=== PATIENT | female | born 1970 | race Caucasian/White ===

== ENCOUNTER 2016-11-19 00:58 | Emergency (ER) | payer OTHER ==
[~2016-11-19] VITALS: Ht 167.6 cm; Wt 74.9 kg
[~2016-11-19 00:58] MED LIST: Advair 500/50 Diskus IH; Levaquin PO; Percocet 5/325,Endoc PO; Protonix PO; Proventil,Ventolin H IH; Tylenol PR
[2016-11-19 01:37] LABS: HEMATOCRIT 40.3 % (36.0-46.0); MCH 31.3 PG (29.0-34.0); MCV 89.6 FL (83-99); MEAN PLAT.VOLUME 9.5 uM^3 (9.5-12.4); PLATELET COUNT 341 K/uL (156-360); RBC DIS.WIDTH-SD 39.5 % (39-53); WHITE BLOOD COUNT 7.8 K/uL (4.1-10.2)
[2016-11-19 01:47] LABS: CHLORIDE 112 mEq/L (99-109); SODIUM 139 mEq/L (136-147)
[2016-11-19 01:49] LABS: GLUCOSE 81 mg/dL (70-99)
[2016-11-19 01:50] LABS: ANION GAP 5 MEQ/L (2-14)
[2016-11-19 01:52] LABS: GFR ESTIMATE (CALCULATED) > 59 mL/min/
[2016-11-19 01:53] LABS: UREA NITROGEN (BUN) 19 mg/dL (9-23)
[2016-11-19 02:00] LABS: TROP-I INTERPRETATION NEGATIVE; TROPONIN-I < 0.01 ng/mL (0.0-0.30)
[2016-11-19 03:53] LABS: D-DIMER ELISA < 150.00 ng/mLDDU (<230)
[2016-11-19 05:46] LABS: TOTAL BILIRUBIN 0.5 mg/dL (0.0-1.0)
[2016-11-19 05:47] LABS: ALKALINE PHOSPHATASE 59 IU/L (3-129)
[2016-11-19 05:49] LABS: DIRECT BILIRUBIN 0.2 mg/dL (0.0-0.3)
[2016-11-19 05:50] LABS: LIPASE 32 U/L (1.0-51.0)
[2016-11-19] MEDS ORDERED: FLEXERIL5 MG PO (07:57)
[2016-11-19] MEDS ORDERED: DILAUDID2 MG PO (07:57)
[2016-11-19] MEDS ORDERED: DURAGESIC50 MCG TD (08:20)
[2016-11-19 08:30] VITALS: BP 117/67
== END 2016-11-19 08:22 | disposition home or self-care (01) ==
LOC: EME 00:58
DX: M25.511 Pain in right shoulder (principal); G89.29 Other chronic pain; R93.2 Abnormal findings on diagnostic imaging of liver and biliary tract; J45.909 Unspecified asthma, uncomplicated; Z87.891 Personal history of nicotine dependence
CPT/HCPCS: 71020; 71250; 80048; 80076; 83690; 84484; 85027; 85379; 93005; 99281; 99284; J1170; J2270; J7030

== ENCOUNTER 2016-12-08 14:01 | Inpatient (IN) | payer OTHER ==
[~2016-12-08] VITALS: Ht 167.6 cm; Wt 76.2 kg
[~2016-12-08 14:01] MED LIST changes: +DILAUDID2 MG PO; +DURAGESIC50 MCG TD; +FLEXERIL5 MG PO
[2016-12-08 15:05] LABS: HEMATOCRIT 49.7 % (36.0-46.0); MCH 30.6 PG (29.0-34.0); MEAN PLAT.VOLUME 9.7 uM^3 (9.5-12.4); PLATELET COUNT 514 K/uL (156-360); RBC DIS.WIDTH-CV 11.9 % (11.8-14.6); RBC DIS.WIDTH-SD 39.6 % (39-53); RED BLOOD COUNT 5.52 M/uL (3.80-5.20); WHITE BLOOD COUNT 14.3 K/uL (4.1-10.2)
[2016-12-08 15:10] LABS: CHLORIDE 101 mEq/L (99-109); POTASSIUM 4.1 mEq/L (3.7-5.4); SODIUM 137 mEq/L (136-147)
[2016-12-08 15:12] LABS: GLUCOSE 81 mg/dL (70-99)
[2016-12-08 15:14] LABS: ANION GAP 21 MEQ/L (2-14); TOTAL BILIRUBIN 1.1 mg/dL (0.0-1.0)
[2016-12-08 15:16] LABS: ALKALINE PHOSPHATASE 77 IU/L (3-129); GFR ESTIMATE (CALCULATED) > 59 mL/min/
[2016-12-08 15:17] LABS: UREA NITROGEN (BUN) 21 mg/dL (9-23)
[2016-12-08 15:19] LABS: LIPASE 15 U/L (1.0-51.0)
[2016-12-08 15:28] LABS: QUANTITATIVE HCG < 4.0 MIU/ML
[2016-12-08 16:01] LABS: TROP-I INTERPRETATION NEGATIVE; TROPONIN-I < 0.01 ng/mL (0.0-0.30)
[2016-12-08] MEDS ORDERED: DURAGESIC25 MCG TD (16:23)
[2016-12-08] MEDS ORDERED: DILAUDID4 MG PO (16:23)
[2016-12-08 16:24] LABS: MAGNESIUM 1.9 mg/dL (1.3-2.7)
[2016-12-08] MEDS ORDERED: PROAIR HFA8.5 GM IH (16:26)
[2016-12-08] MEDS ORDERED: LYRICA25 MG PO (16:26)
[2016-12-08] MEDS ORDERED: SYMBICORT60 INHALA1 IH (16:27)
[2016-12-08 18:43] LABS: ADD MIUA? YES; BILIRUBIN NEGATIVE; BLOOD MODERATE; COLOR YELLOW ((YELLOW)); GLUCOSE (STRIP) NEGATIVE; KETONES 80; LEUKOCYTES NEGATIVE; NITRITE NEGATIVE; PROTEIN (STRIP) NEGATIVE; SPECIFIC GRAVITY 1.014 (1.000-1.030); UROBILINOGEN 0.2 MG/DL (0.2-1.0)
[2016-12-08 18:45] LABS: BACTERIA NONE SEEN /HPF; EPITHELIAL CELLS RARE /HPF; MUCUS TRACE /LPF; RED BLOOD CELLS 0-5 /HPF (0-5); UCUL ADDED? NO; WHITE BLOOD CELLS 0-5 /HPF (0-5)
[2016-12-08 19:00] LABS: EOSINOPHIL (%) 0.1 % (0-5); HEMATOCRIT 43.9 % (36.0-46.0); IMMATURE GRANULOCYTE (%) 0.6 % (0.0-0.7); IMMATURE GRANULOCYTE COUNT 0.1 K/uL; INSTRUMENT ABS NEUTROPHIL CT 13.4 K/uL; LYMPHOCYTE COUNT 0.9 K/uL (1.0-2.8); MCH 30.8 PG (29.0-34.0); MCHC 33.7 G/DL (30.0-36.0); MCV 91.5 FL (83-99); MEAN PLAT.VOLUME 9.5 uM^3 (9.5-12.4); MONOCYTE (%) 7.6 % (3-12); MONOCYTE COUNT 1.2 K/uL (0-0.8); NEUTROPHIL (%) 85.6 % (45-76); NEUTROPHIL COUNT 13.4 K/uL (1.8-6.4); PLATELET COUNT 383 K/uL (156-360); RBC DIS.WIDTH-CV 11.9 % (11.8-14.6); RBC DIS.WIDTH-SD 40.3 % (39-53); WHITE BLOOD COUNT 15.6 K/uL (4.1-10.2)
[2016-12-08 19:13] LABS: TROP-I INTERPRETATION NEGATIVE; TROPONIN-I < 0.01 ng/mL (0.0-0.30)
[2016-12-08 20:11] LABS: AMPHETAMINE NEGATIVE (500 ng/mL); BARBITURATES NEGATIVE (200 ng/mL); BENZODIAZEPINES NEGATIVE (150 ng/mL); COCAINE NEGATIVE (150 ng/mL); INTERNAL CONTROLS VALID? YES; METHADONE NEGATIVE (200 ng/mL); METHAMPHETAMINE NEGATIVE (500 ng/mL); OPIATES (MORPHINE) NEGATIVE (100 ng/mL); OXYCODONE NEGATIVE (100 ng/mL); PHENCYCLIDINE NEGATIVE (25 ng/mL); PROPOXYPHENE NEGATIVE (300 ng/mL); THC CANNABINOIDS NEGATIVE (50 ng/mL); TRICYCLIC ANTIDEPRESSANTS NEGATIVE (300 ng/mL)
[2016-12-08 23:35] VITALS: BP 104/62
[2016-12-09] VITALS (7 sets, daily range): BP systolic 91–118; BP diastolic 53–74
[2016-12-09 02:41] LABS: TROP-I INTERPRETATION NEGATIVE; TROPONIN-I 0.01 ng/mL (0.0-0.30)
[2016-12-09 09:16] LABS: HEMATOCRIT 36.7 % (36.0-46.0); MCH 32.2 PG (29.0-34.0); MCHC 34.9 G/DL (30.0-36.0); MCV 92.4 FL (83-99); PLATELET COUNT 315 K/uL (156-360); RBC DIS.WIDTH-CV 12.4 % (11.8-14.6); RBC DIS.WIDTH-SD 42.3 % (39-53); RED BLOOD COUNT 3.97 M/uL (3.80-5.20); WHITE BLOOD COUNT 7.6 K/uL (4.1-10.2)
[2016-12-09 09:43] LABS: TROP-I INTERPRETATION NEGATIVE; TROPONIN-I 0.02 ng/mL (0.0-0.30)
[2016-12-09 09:45] LABS: ALKALINE PHOSPHATASE 46 IU/L (3-129); ANION GAP 8 MEQ/L (2-14); CHLORIDE 110 MEQ/L (99-109); GFR ESTIMATE (CALCULATED) > 59 mL/min/; GLUCOSE 100 mg/dL (70-99); POTASSIUM 4.1 MEQ/L (3.7-5.4); SAMPLE HEMOLYSIS CHECK 0; SAMPLE ICTERIC CHECK 0; SAMPLE LIPEMIA CHECK 0; SODIUM 139 MEQ/L (136-147); UREA NITROGEN (BUN) 11 mg/dL (9-23)
[2016-12-10 04:24] VITALS: BP 119/68
[2016-12-10 05:31] LABS: EOSINOPHIL (%) 4.5 % (0-5); EOSINOPHIL COUNT 0.3 K/uL (0-0.3); HEMATOCRIT 36.3 % (36.0-46.0); IMMATURE GRANULOCYTE (%) 0.3 % (0.0-0.7); INSTRUMENT ABS NEUTROPHIL CT 3.3 K/uL; LYMPHOCYTE COUNT 1.3 K/uL (1.0-2.8); MCH 31.7 PG (29.0-34.0); MCHC 33.9 G/DL (30.0-36.0); MCV 93.6 FL (83-99); MONOCYTE (%) 14.3 % (3-12); MONOCYTE COUNT 0.8 K/uL (0-0.8); NEUTROPHIL (%) 57.3 % (45-76); NEUTROPHIL COUNT 3.3 K/uL (1.8-6.4); PLATELET COUNT 275 K/uL (156-360); RBC DIS.WIDTH-CV 12.1 % (11.8-14.6); RED BLOOD COUNT 3.88 M/uL (3.80-5.20); WHITE BLOOD COUNT 5.8 K/uL (4.1-10.2)
[2016-12-10 06:05] LABS: ALKALINE PHOSPHATASE 45 IU/L (3-129); ANION GAP 8 MEQ/L (2-14); CHLORIDE 108 MEQ/L (99-109); GFR ESTIMATE (CALCULATED) > 59 mL/min/; MAGNESIUM 1.6 mg/dl (1.3-2.7); SAMPLE HEMOLYSIS CHECK 0; SAMPLE ICTERIC CHECK 0; SAMPLE LIPEMIA CHECK 0; SODIUM 139 MEQ/L (136-147); UREA NITROGEN (BUN) 5 mg/dL (9-23)
[2016-12-10 06:15] LABS: GLUCOSE 206 mg/dL (70-99); TOTAL BILIRUBIN 0.7 MG/DL (0.0-1.0)
[2016-12-10 07:25] VITALS: BP 104/66
[2016-12-10 12:16] VITALS: BP 114/67
[2016-12-10 16:07] VITALS: BP 129/65
[2016-12-10 20:00] VITALS: BP 117/71
[2016-12-11 00:26] VITALS: BP 107/71
[2016-12-11 04:00] VITALS: BP 100/60
[2016-12-11 06:39] LABS: ANION GAP 8 MEQ/L (2-14); CHLORIDE 106 MEQ/L (99-109); GFR ESTIMATE (CALCULATED) > 59 mL/min/; MAGNESIUM 1.6 mg/dl (1.3-2.7); SAMPLE HEMOLYSIS CHECK 0; SAMPLE ICTERIC CHECK 0; SAMPLE LIPEMIA CHECK 0; SODIUM 139 MEQ/L (136-147); UREA NITROGEN (BUN) 5 mg/dL (9-23)
[2016-12-11 06:45] LABS: GLUCOSE 98 mg/dL (70-99)
[2016-12-11 08:31] VITALS: BP 115/63
[2016-12-11 12:04] VITALS: BP 108/70
[2016-12-11] MEDS ORDERED: DICYCLOMINE HCL10 MG PO (13:24)
[2016-12-11] MEDS ORDERED: [UNRECOGNIZED DRUG - OTHER] TP (15:30)
[2016-12-11 16:00] VITALS: BP 112/74
[2016-12-11 19:45] VITALS: BP 115/71
[2016-12-12 00:05] VITALS: BP 105/66
[2016-12-12 03:30] VITALS: BP 107/68
[2016-12-12 07:45] VITALS: BP 103/65
[2016-12-12 12:31] VITALS: BP 111/70
[2016-12-12] MEDS ORDERED: REGLAN5 MG PO (13:52)
[2016-12-12] MEDS ORDERED: ZOFRAN4 MG PO (14:31)
== END 2016-12-12 15:40 | disposition home or self-care (01) | DRG 392 ==
LOC: EME 14:01 → EDOF 21:46 → ENRESERV 21:51 → 5WEST 23:25 → ENRESERV 12-09 09:53 → CANRESERV 12-09 09:53 → 5WEST 12-12 15:40
PROVIDERS: Emergency Medicine; Internal Medicine
PROC: 0DB68ZX Excision of Stomach, Via Natural or Artificial Opening Endoscopic, Diagnostic (ICD-10-PCS; principal; 2016-12-11)
PROC: 0DB58ZX Excision of Esophagus, Via Natural or Artificial Opening Endoscopic, Diagnostic (ICD-10-PCS; principal; 2016-12-11)
DX: R11.2 Nausea with vomiting, unspecified (principal); K31.84 Gastroparesis; G43.D0 Abdominal migraine, not intractable; E86.0 Dehydration; K22.10 Ulcer of esophagus without bleeding; K29.60 Other gastritis without bleeding; K25.9 Gastric ulcer, unspecified as acute or chronic, without hemorrhage or perforation; D72.829 Elevated white blood cell count, unspecified; R00.8 Other abnormalities of heart beat; R07.89 Other chest pain; R41.82 Altered mental status, unspecified; R55 Syncope and collapse; F12.90 Cannabis use, unspecified, uncomplicated; G89.4 Chronic pain syndrome; M47.812 Spondylosis without myelopathy or radiculopathy, cervical region; I49.3 Ventricular premature depolarization; G43.909 Migraine, unspecified, not intractable, without status migrainosus; D18.03 Hemangioma of intra-abdominal structures; D25.9 Leiomyoma of uterus, unspecified; N83.202 Unspecified ovarian cyst, left side; N28.1 Cyst of kidney, acquired; J45.909 Unspecified asthma, uncomplicated; K59.00 Constipation, unspecified; Z80.1 Family history of malignant neoplasm of trachea, bronchus and lung; Z87.891 Personal history of nicotine dependence
CPT/HCPCS: 71010; 74176; 76770; 80048; 80053; 81003; 83690; 83735; 84100; 84443; 84484; 84702; 85025; 85027; 87502; 88305; 88342 TC; 90686; 93005; 94640; 94640 76; 94644; 99202; 99281; 99285; C9113; G0378; J1200; J1650; J2270; J2405; J2765; J3010; J3475; J7030; J7042; S0028